=== PATIENT | female | born 1970 | race Caucasian/White ===

== ENCOUNTER 2016-09-29 19:39 | Emergency (ER) | payer MEDICARE ==
[~2016-09-29] VITALS: Ht 172.7 cm; Wt 90.7 kg
[2016-09-29 19:43] VITALS: BP_SYST 145
--- NOTE | 2016-09-29 20:12 | NUR ---
Patient to ER bed 4 to gown for evaluation. Side rails up. Report given to TERE Devine.
--- NOTE | 2016-09-29 20:13 | NUR ---
Pt presents to ED with c/o swelling and 7/10 pain at Left jaw Pt denies any surgery or procedure in the mouth, stated she had sorethroat and the left jaw started getting swollen and painful since sunday. Left jaw appeared reddened, swollen, tender to touch, pt c/o difficulty swallowing in feeling nauseous, stated left pelvis pain 5/10 radiated to left thigh. A&Ox4, ambulatory, denies chestpain, denies Vomitting or diarrhea. Will continue to monitor
--- NOTE | 2016-09-29 20:37 | NUR ---
MD Aguilar at bedside examining pt
[2016-09-29] MEDS ORDERED: MORPHINE SULFATE 10 MG/ML VIAL IM ONE (20:45)
--- NOTE | 2016-09-29 21:00 | NUR ---
MD Aguilar stated pt is not sepsis
[2016-09-29 21:08] LABS: BILIRUBIN,URINE NEGATIVE (NEGATIVE); BLOOD, URINE 2+ (NEGATIVE); CLARITY/URINE CLEAR (CLEAR); COLOR,URINE YELLOW (YELLOW); GLUCOSE,URINE NEGATIVE (NEGATIVE); KETONES,URINE NEGATIVE (NEGATIVE); LEUKOCYTE ESTERASE ,URINE NEGATIVE (NEGATIVE); NITRITE, URINE NEGATIVE (NEGATIVE); PROTEIN URINE NEGATIVE (NEGATIVE); UROBILINOGEN,URINE 0.2 (0.2-1.0)
[2016-09-29 21:08] LABS: BASOPHILS % (AUTO) 0.3 % (0.0-2.0); EOSINOPHILS # (AUTO) 0.3 K/uL (0.0-0.4); HEMATOCRIT 43.1 % (36-48); HEMOGLOBIN 14.5 g/dL (12.0-16.0); LYMPHOCYTES # (AUTO) 2.1 K/uL (1.0-5.5); LYMPHOCYTES % (AUTO) 15.6 % (20.5-51.5); MEAN CORPUSCULAR HEMOGLOBIN 28 pg (27-31); MEAN CORPUSCULAR HGB CONC 34 % (32-36); MEAN CORPUSCULAR VOLUME 85 fL (79.0-98.0); MONOCYTES # (AUTO) 0.7 K/uL (0.0-1.0); MONOCYTES % (AUTO) 5.4 % (1.7-9.3); NEUTROPHILS # (AUTO) 10.3 K/uL (1.8-7.7); NEUTROPHILS % (AUTO) 76.7 % (40.0-70.0); PLATELET COUNT (AUTO) 298 K/uL (130-430); RED CELL DISTRIBUTION WIDTH 12.1 % (9.0-15.0); WHITE BLOOD COUNT (AUTO) 13.4 K/uL (4.8-10.8)
[2016-09-29 21:19] LABS: CALCIUM 8.9 mg/dL (8.4-11.0); CHLORIDE 102 mmol/L (98-107); CREATININE 1.09 mg/dL (0.55-1.30); GLUCOSE 102 mg/dL (70-99); POTASSIUM 4.3 mmol/L (3.5-5.1); SODIUM SERUM 138 mmol/L (136-145); UREA NITROGEN, BLOOD 21 mg/dL (8-21)
[2016-09-29 21:21] LABS: ANION GAP < 3 (5-15); GFR AFRICAN AMERICAN 69 mL/min (>90)
--- NOTE | 2016-09-29 21:23 | NUR ---
pt in bed, stated pain is tolerable. No distress noted
[2016-09-29 21:24] LABS: BACTERIA,URINE FEW /HPF (None Seen); MUCUS,URINE None Seen /LPF (None Seen); WBC,URINE 0-3 /HPF (0-3)
[2016-09-29 21:24] LABS: ALANINE AMINOTRANSFERASE 21 U/L (12-78); ALBUMIN 3.6 g/dL (3.4-4.8); ASPARTATE AMINOTRANSFERASE 13 U/L (10-37); TOTAL BILIRUBIN 0.3 mg/dL (0.0-1.0); TOTAL PROTEIN, SERUM 7.8 g/dL (6.4-8.3)
--- NOTE | 2016-09-29 22:06 | NUR ---
Patient given written and verbal discharge instructions and verbalizes understanding. ER MD Aguilar discussed with patient the results and treatment provided. Given copies of tests performed in ER. Patient in stable condition. ID arm band removed. Rx of levaquin given. Patient educated on pain management and to follow up with PMD. Pain Scale 0/10 Opportunity for questions provided and answered.
[2016-09-29 22:07] VITALS: BP_SYST 140
== END 2016-09-29 22:06 | disposition home or self-care (01) ==
LOC: SED 19:39
DX: N39.0 Urinary tract infection, site not specified (principal); K04.7 Periapical abscess without sinus
CPT/HCPCS: 36415; 80053; 81000; 85025; 96372; 99284; J2270; J7030